=== PATIENT | female | born 1975 | race Caucasian/White ===

== ENCOUNTER → 2020-08-18 | Outpatient (CLI) | payer BC, OTHER ==
[~2020-08-18] MED LIST: BENTYL 10MG CAP10 MG PO; CEPHALEXIN500 M1 PO; CETIRIZINE HCL10 MG PO; DICLOFENAC GEL 1% TOP; ESTRADIOL1 MG PO; HYDROCHLOROTHIA25 MG PO; IBU800 MG PO; LEVOTHYROXINE50 MC1 PO; NEURONTIN600 MG PO; OXYCODONE HCL5 M1 PO; PERCOCET 5/325 T1 EA PO; PRILOSEC OTC20 MG PO; PROZAC10 MG PO
[2020-08-18 12:37] LABS: BUN/CREATININE RATIO 19 (0-10)
== END ==
LOC: OPSV2 10:30
PROVIDERS: Anesthesiology
DX: Z01.818 Encounter for other preprocedural examination (principal); G56.01 Carpal tunnel syndrome, right upper limb
CPT/HCPCS: 36415; 80048

== ENCOUNTER → 2020-08-23 | Outpatient (CLI) | payer BC, OTHER | LOC: LBRF 14:09 | DX: Z01.812 Encounter for preprocedural laboratory examination (principal); Z20.822 Contact with and (suspected) exposure to COVID-19 | CPT/HCPCS: U0003 ==

== ENCOUNTER → 2020-08-26 | Day surgery (SDC) | payer BC, OTHER | END | disposition home or self-care (01) | LOC: OR 06:07 | DX: G56.03 Carpal tunnel syndrome, bilateral upper limbs (principal); K21.9 Gastro-esophageal reflux disease without esophagitis; E07.9 Disorder of thyroid, unspecified; G89.29 Other chronic pain; K58.9 Irritable bowel syndrome, unspecified; G47.30 Sleep apnea, unspecified; M19.90 Unspecified osteoarthritis, unspecified site; F41.0 Panic disorder [episodic paroxysmal anxiety]; Z79.899 Other long term (current) drug therapy | CPT/HCPCS: J1100; J2250; J2405; J2550; J2704; J3010; J7120; U0003 ==

== ENCOUNTER 2020-09-05 11:37 | Emergency (ER) | payer BC, OTHER ==
[~2020-09-05 11:37] MED LIST changes: -CEPHALEXIN500 M1 PO
[2020-09-05] MEDS ORDERED: CEPHALEXIN500 M1 PO (12:40)
== END 2020-09-05 12:54 | disposition home or self-care (01) ==
LOC: ER1 11:37
DX: T81.30XA Disruption of wound, unspecified, initial encounter (principal)
CPT/HCPCS: 99283